=== PATIENT | male | born 1955 | race Caucasian/White ===

== ENCOUNTER 2023-08-27 09:46 | Day surgery (SDC) | payer MEDICARE, BC ==
[2023-08-24 16:40] LABS: BASOPHILS % (AUTO) 0.3 % (0-1); EOSINOPHILS % (AUTO) 0.6 % (0-6); LYMPHOCYTES # (AUTO) 0.7 X10'3 (1.1-4.8); LYMPHOCYTES % (AUTO) 8.2 % (21-51); MEAN CORPUSCULAR HEMOGLOBIN 31.5 PG (27.0-31.0); MEAN CORPUSCULAR HGB CONC 34.4 g/dL (33.0-36.5); MEAN CORPUSCULAR VOLUME 91.5 FL (78-98); MEAN PLATELET VOLUME 6.7 FL (7.4-10.4); MONOCYTES # (AUTO) 0.7 X10'3 (0-0.9); NEUTROPHILS # (AUTO) 6.7 X10'3 (1.8-7.7); NEUTROPHILS % (AUTO) 81.9 % (42-75); PRE OP HEMATOCRIT 42.2 % (42.0-52.0); PRE OP HEMOGLOBIN 14.5 g/dL (14.0-17.9); PRE OP PLATELET COUNT 292 X10'3 (140-440); PRE OP WHITE BLOOD COUNT 8.1 10'3 (4.8-10.8); RED BLOOD COUNT 4.62 X10'6 (4.70-6.10); RED CELL DISTRIBUTION WIDTH 12.7 % (11.5-14.5)
[2023-08-24 16:53] LABS: ALBUMIN 3.5 G/DL (3.4-5.0); ALBUMIN/GLOBULIN RATIO 1.1 (1.1-1.5); ALKALINE PHOSPHATASE 72 IU/L (46-116); BLOOD UREA NITROGEN 11 MG/DL (7-18); BUN/CREATININE RATIO 13.4 (10.0-20.0); CALCIUM 8.4 MG/DL (8.5-10.1); CHLORIDE 102 MMOL/L (99-107); CREATININE 0.82 MG/DL (0.60-1.10); PRE OP ALT 24 U/L (30-65); PRE OP ANION GAP 9 (8-16); PRE OP AST 18 U/L (10-37); PRE OP BILIRUB, TOTAL 0.6 MG/DL (0.0-1.0); PRE OP GLUCOSE 89 MG/DL (70-104); PRE OP POTASSIUM 4.5 MMOL/L (3.4-5.1); PRE OP SODIUM 137 MMOL/L (135-145); TOTAL CARBON DIOXIDE 25.9 MMOL/L (24-32); TOTAL PROTEIN 6.8 G/DL (6.4-8.2); eGFR > 90 ML/MIN
[~2023-08-27] VITALS: Ht 180.3 cm; Wt 87.1 kg
[~2023-08-27 09:46] MED LIST: APIX2.5T PO; CELE-127 PO; DIAZ5TAB22 PO; DOXY50TA3 PO; OXYC10TA57 PO; VALS160T30 PO
[2023-08-27] MEDS ORDERED: LIDOcaine 1% 30ml preserv. free vial ONE (10:34)
[2023-08-27 10:40] VITALS: BP 140/94; PULSE 83; RESP 16; TEMP 97.3; O2SAT 100
[2023-08-27] MEDS: famotidine 20mg tablet PO ONE (10:59)
[2023-08-27] MEDS: ringers solution, lacted 1,000 ML IV SCH (11:00)
[2023-08-27] MEDS: cefazolin 2gm/D5W 100mL 100 ML IV ONE (11:00)
[2023-08-27] MEDS ORDERED: ketorolac trometh. 30mg/ml inj. ONE (13:11)
[2023-08-27] MEDS ORDERED: fentaNYL/PF 50MCG/1 ML 2ML syringe ONE (13:26)
[2023-08-27] MEDS ORDERED: midazolam 1 mg/ML 2ml injection ONE ×2 (13:26)
[2023-08-27] MEDS ORDERED: BUPIVAcaine/PF 2.5mg/ml (0.25%) 10ml vial ONE (13:34)
[2023-08-27] MEDS: BUPIVAcaine/PF 2.5mg/ml (0.25%) 10ml vial IJ ONE (14:11)
[2023-08-27 14:35] VITALS: BP 135/91; PULSE 99; RESP 16; O2SAT 99
[2023-08-27 14:40] VITALS: BP 134/96; PULSE 98; RESP 19; O2SAT 97
[2023-08-27 14:50] VITALS: BP 138/89; PULSE 95; RESP 14; O2SAT 99
== END 2023-08-27 15:02 | disposition home or self-care (01) ==
LOC: PAS 09:46
PROVIDERS: ATTEND Orthopaedic Surgery Hand Surgery
DX: M65.842 Other synovitis and tenosynovitis, left hand (principal); I10 Essential (primary) hypertension; Z86.718 Personal history of other venous thrombosis and embolism; Z79.01 Long term (current) use of anticoagulants; Z79.2 Long term (current) use of antibiotics; Z79.891 Long term (current) use of opiate analgesic; Z79.899 Other long term (current) drug therapy; Z96.651 Presence of right artificial knee joint; Z96.642 Presence of left artificial hip joint; Z98.890 Other specified postprocedural states
CPT/HCPCS: 25290; 36415; 80053; 82948; 85025; 93005; A6222; J1885; J2250; J3010; J3490; J7030; J7120; Z7506; Z7512; A4215; A6449; J0690